=== PATIENT | female | born 1970 | race African-American/Black ===

== ENCOUNTER 2021-02-27 12:54 | Emergency (ER) | payer OTHER, BC ==
[2021-02-27 13:16] VITALS: PULSE 94; TEMP 98; BMI 36.9
[2021-02-27] MEDS ORDERED: KETOROLAC TROMETHAMINE 60 MG/2 ML VIAL IM ONE (13:54)
[2021-02-27] MEDS ORDERED: KETOROLAC TROMETHAMINE 60 MG/2 ML VIAL ONE (13:54)
[2021-02-27 14:35] VITALS: BP 218/84
== END 2021-02-27 15:06 ==
LOC: JER 12:54
PROC: 3E023GC Introduction of Other Therapeutic Substance into Muscle, Percutaneous Approach (ICD-10-PCS; principal; 2021-02-27)
DX: S93.401A Sprain of unspecified ligament of right ankle, initial encounter (principal); I10 Essential (primary) hypertension; W01.0XXA Fall on same level from slipping, tripping and stumbling without subsequent striking against object, initial encounter
CPT/HCPCS: 73610-TC-RT-FY; 73630-TC-RT-FY; 99284-25

== ENCOUNTER 2023-02-11 16:17 | Inpatient (IN) | payer BC, OTHER ==
[2023-02-11 18:48] LABS: BASO % 0.8 % (0-2.0); EOS % 1.1 % (0-4.5); HEMATOCRIT 37.5 % (32.4-45.2); HEMOGLOBIN 12.6 GM/dL (10.7-15.3); LYMPH % 24.8 % (8-40); MCH 26.3 pg (25.7-33.7); MCHC 33.7 g/dl (32.0-36.0); MEAN CELL VOLUME 78.1 fl (80-96); MEAN PLT VOLUME 9.3 fl (7.5-11.1); MONO % 5.7 % (3.8-10.2); NEUT % 67.6 % (42.8-82.8); PLATELET COUNT 247 10^3/uL (134-434); WHITE BLOOD COUNT 5.5 K/mm3 (4.0-10.0)
[2023-02-11 18:55] LABS: INR 1.41 (0.83-1.09); PROTHROMBIN TIME (PATIENT) 16.3 SEC (9.7-13.0)
[2023-02-11] MEDS ORDERED: LABETALOL HCL 5 MG/1 ML (100MG/20 ML VIAL) IVPUSH ONE ×3 (18:57→21:46)
[2023-02-11 18:58] LABS: ACTIVATED PTT 32.7 SECONDS (25.2-36.5)
[2023-02-11 19:00] LABS: POTASSIUM 3.7 mmol/L (3.5-5.1)
[2023-02-11 19:02] LABS: ALBUMIN 3.6 g/dl (3.4-5.0); CALCIUM 8.9 mg/dL (8.5-10.1); MAGNESIUM 1.8 mg/dL (1.8-2.4)
[2023-02-11 19:05] LABS: CREATININE 0.9 mg/dL (0.55-1.3)
[2023-02-11 19:07] LABS: BILIRUBIN,TOTAL 2.3 mg/dL (0.2-1); TOT PROT 6.7 g/dl (6.4-8.2)
[2023-02-11] MEDS ORDERED: LABETALOL HCL 20 MG/4 ML VIAL ONE (19:18)
[2023-02-11] MEDS ORDERED: FUROSEMIDE 40 MG/4 ML INJECTABLE VIAL IVPUSH ONE (21:13)
[2023-02-11] MEDS ORDERED: FUROSEMIDE 40 MG/4 ML INJECTABLE VIAL ONE (21:18)
[2023-02-11] MEDS ORDERED: CARVEDILOL 6.25 MG TABLET (FP) PO ONE (21:43)
[2023-02-11] MEDS ORDERED: LISINOPRIL 5 MG TABLET PO ONE (21:43)
[2023-02-11] MEDS ORDERED: LISINOPRIL 5 MG TABLET ONE (21:49)
[2023-02-11] MEDS ORDERED: CARVEDILOL 6.25 MG TABLET (FP) ONE ×2 (21:49→23:30)
[2023-02-11] MEDS ORDERED: ASPIRIN 81 MG CHEWABLE TABLETS PO ONE (22:33)
[2023-02-11 22:44] LABS: BILIRUBIN,DIRECT 0.7 mg/dL (0.0-0.2)
[2023-02-11] MEDS: CARVEDILOL 6.25 MG TABLET (FP) PO SCH ×2 (22:45→23:35)
[2023-02-11] MEDS ORDERED: LOSARTAN POTASSIUM 50 MG TABLET ONE (23:29)
[2023-02-11] MEDS ORDERED: ASPIRIN 81 MG CHEWABLE TABLETS ONE (23:30)
[2023-02-11] MEDS: LOSARTAN POTASSIUM 50 MG TABLET PO SCH (23:35)
[2023-02-12 00:09] VITALS: BMI 36.3
[2023-02-12] MEDS: HYDROCHLOROTHIAZIDE 25 MG TABLET (FP) PO SCH ×2 (00:48→09:57)
[2023-02-12] MEDS ORDERED: FUROSEMIDE 40 MG/4 ML INJECTABLE VIAL IVPUSH SCH (06:00)
[2023-02-12] MEDS ORDERED: KETOROLAC TROMETHAMINE 15 MG/ML VIAL IVPUSH ONE (06:43)
[2023-02-12 08:11] LABS: HEMATOCRIT 33.8 % (32.4-45.2); HEMOGLOBIN 11.1 GM/dL (10.7-15.3); MCHC 32.8 g/dl (32.0-36.0); MEAN CELL VOLUME 79.3 fl (80-96); MEAN PLT VOLUME 9.5 fl (7.5-11.1); PLATELET COUNT 217 10^3/uL (134-434); RBC 4.26 M/mm3 (3.60-5.2); RDW 16.4 % (11.6-15.6); WHITE BLOOD COUNT 4.4 K/mm3 (4.0-10.0)
[2023-02-12 08:36] LABS: POTASSIUM 3.5 mmol/L (3.5-5.1)
[2023-02-12 08:38] LABS: ALBUMIN 3.2 g/dl (3.4-5.0); CALCIUM 8.1 mg/dL (8.5-10.1)
[2023-02-12 08:39] LABS: BLOOD UREA NITROGEN 15.9 mg/dL (7-18)
[2023-02-12 08:41] LABS: CREATININE 0.9 mg/dL (0.55-1.3)
[2023-02-12 08:43] LABS: TOT PROT 5.8 g/dl (6.4-8.2)
[2023-02-12] MEDS: ASPIRIN 81 MG CHEWABLE TABLETS PO SCH (09:56)
[2023-02-12] MEDS: CARVEDILOL 6.25 MG TABLET (FP) PO SCH ×2 (09:56→21:19)
[2023-02-12] MEDS: LOSARTAN POTASSIUM 50 MG TABLET PO SCH (09:56)
[2023-02-12] MEDS: ENOXAPARIN NA (PORCINE) 40 MG/0.4 ML DISP.SYRIN SQ SCH (09:57)
[2023-02-12] MEDS ORDERED: HYDROCHLOROTHIAZIDE 25 MG TABLET (FP) PO SCH ×2 (10:00)
[2023-02-12] MEDS: guaiFENesin 600 MG TABLET.ER (FP) PO SCH ×2 (11:40→21:19)
[2023-02-12] MEDS ORDERED: FUROSEMIDE 40 MG/4 ML INJECTABLE VIAL IVPUSH ONE (16:00)
[2023-02-12] MEDS ORDERED: ACETAMINOPHEN 500 MG TABLET (FP) PO ONE (16:15)
[2023-02-13] MEDS: HYDROCHLOROTHIAZIDE 25 MG TABLET (FP) PO SCH (09:16)
[2023-02-13] MEDS: CARVEDILOL 6.25 MG TABLET (FP) PO SCH (09:16)
[2023-02-13] MEDS: ENOXAPARIN NA (PORCINE) 40 MG/0.4 ML DISP.SYRIN SQ SCH (09:16)
[2023-02-13] MEDS: LOSARTAN POTASSIUM 50 MG TABLET PO SCH (09:16)
[2023-02-13] MEDS: guaiFENesin 600 MG TABLET.ER (FP) PO SCH ×2 (09:16→21:17)
[2023-02-13] MEDS: ASPIRIN 81 MG CHEWABLE TABLETS PO SCH (09:16)
[2023-02-13] MEDS: hydrALAZINE HCL 20 MG/ML VIAL IVPUSH PRN ×2 (10:58→22:50)
[2023-02-13] MEDS: CARVEDILOL 12.5 MG TABLET (FP) PO SCH (21:17)
[2023-02-13] MEDS: ATORVASTATIN CA 40 MG TABLET (FP) PO SCH (21:17)
[2023-02-14 09:15] LABS: BASO % 0.9 % (0-2.0); EOS % 4.1 % (0-4.5); HEMATOCRIT 36.5 % (32.4-45.2); HEMOGLOBIN 12.1 GM/dL (10.7-15.3); LYMPH % 19.8 % (8-40); MCH 26.3 pg (25.7-33.7); MCHC 33.1 g/dl (32.0-36.0); MEAN CELL VOLUME 79.4 fl (80-96); MEAN PLT VOLUME 9.3 fl (7.5-11.1); MONO % 9.5 % (3.8-10.2); NEUT % 65.7 % (42.8-82.8); PLATELET COUNT 219 10^3/uL (134-434); WHITE BLOOD COUNT 3.7 K/mm3 (4.0-10.0)
[2023-02-14] MEDS: LOSARTAN POTASSIUM 50 MG TABLET PO SCH (09:38)
[2023-02-14] MEDS: HYDROCHLOROTHIAZIDE 25 MG TABLET (FP) PO SCH (09:38)
[2023-02-14] MEDS: CARVEDILOL 12.5 MG TABLET (FP) PO SCH (09:38)
[2023-02-14] MEDS: ENOXAPARIN NA (PORCINE) 40 MG/0.4 ML DISP.SYRIN SQ SCH (09:38)
[2023-02-14 09:42] LABS: POTASSIUM 3.8 mmol/L (3.5-5.1)
[2023-02-14 09:49] LABS: MAGNESIUM 1.8 mg/dL (1.8-2.4)
[2023-02-14 09:53] LABS: CALCIUM 8.5 mg/dL (8.5-10.1)
[2023-02-14 09:58] LABS: CREATININE 0.7 mg/dL (0.55-1.3)
[2023-02-14] MEDS ORDERED: metoPROLOL SUCCINATE 25 MG TAB.SR.24H (FP) PO ONE (10:11)
[2023-02-14] MEDS: ASPIRIN 81 MG CHEWABLE TABLETS PO SCH (11:42)
[2023-02-14] MEDS: guaiFENesin 600 MG TABLET.ER (FP) PO SCH ×2 (11:42→21:22)
[2023-02-14] MEDS: metoPROLOL SUCCINATE 25 MG TAB.SR.24H (FP) PO SCH ×2 (11:43→21:22)
[2023-02-14 20:22] VITALS: RESP 18
[2023-02-14] MEDS: ATORVASTATIN CA 40 MG TABLET (FP) PO SCH (21:22)
[2023-02-15 06:54] VITALS: TEMP 98.2
[2023-02-15] MEDS: metoPROLOL SUCCINATE 25 MG TAB.SR.24H (FP) PO SCH (09:10)
[2023-02-15] MEDS: ASPIRIN 81 MG CHEWABLE TABLETS PO SCH (09:10)
[2023-02-15] MEDS: guaiFENesin 600 MG TABLET.ER (FP) PO SCH (09:10)
[2023-02-15] MEDS: HYDROCHLOROTHIAZIDE 25 MG TABLET (FP) PO SCH (09:10)
[2023-02-15] MEDS: LOSARTAN POTASSIUM 50 MG TABLET PO SCH (09:10)
[2023-02-15] MEDS: ENOXAPARIN NA (PORCINE) 40 MG/0.4 ML DISP.SYRIN SQ SCH (09:34)
[2023-02-15 11:20] VITALS: BP 175/120; PULSE 80
== END 2023-02-15 11:24 | disposition short-term general hospital (02) | DRG 280 ==
LOC: JER 16:17 → JERBED 21:50 → J4S 23:44
PROVIDERS: ADMIT Internal Medicine; ATTEND Internal Medicine
DX: I21.4 Non-ST elevation (NSTEMI) myocardial infarction (principal); I50.21 Acute systolic (congestive) heart failure; I16.0 Hypertensive urgency; I50.9 Heart failure, unspecified; Z91.148 Patient's other noncompliance with medication regimen for other reason; I11.0 Hypertensive heart disease with heart failure; E66.9 Obesity, unspecified; Z68.36 Body mass index [BMI] 36.0-36.9, adult
CPT/HCPCS: 0241U-QW; 36415; 71045-TC-FY; 71275-TC; 76705-TC; 80048; 80053; 80061; 82088; 82248; 83036; 83735; 83880; 84244; 84443; 84484; 84703; 85025; 85027; 85379; 85610; 85730; 86850; 86900; 86901; 87045; 87046; 87324; 87425; 87449; 87798; 93005; 93010; 93306-TC; 93970-TC; 99285-25; Q9967